=== PATIENT | male | born 1960 | race Two or more races ===

== ENCOUNTER 2017-08-12 08:30 | Day surgery (SDC) | payer OTHER ==
[~2017-08-12] VITALS: Ht 170.2 cm; Wt 63.5 kg
[2017-08-12 09:04] VITALS: Ht 170.2 cm; Wt 63.5 kg
[2017-08-12] MEDS ORDERED: FENTAnyl 50 MCG/ML VIAL ONE (09:48)
[2017-08-12] MEDS ORDERED: MIDAZOLAM 1 MG/ML 2 ML INJ ONE ×2 (09:49)
--- NOTE | 2017-08-12 10:01 | OPPN ---
Date/Time of Note Date/Time of Note DATE: 08/12/17 TIME: 10:00 Proc Note GI Procedure Date 08/12/17 Indication: screening/surveillance Pre-procedure Diagnosis Screening procedure Post-procedure Diagnosis Normal: Colonoscopy Procedure Performed: Colonoscopy Surgeon see signature line Briquetting Machine Operator none Anesthesia Type: moderate sedation Tourniquet Time none EBL none Transfusion required none Biopsy 1: None Grafts/Implants none Tubes/Drains none Complication(s) none Disposition: home Procedure Description See dictated report CAROL BEAL MD Aug 12, 2017 10:01
--- NOTE | 2017-08-12 10:01 | OPPN ---
Date/Time of Note Date/Time of Note DATE: 08/12/17 TIME: 10:00 Proc Note GI Procedure Date 08/12/17 Indication: screening/surveillance Pre-procedure Diagnosis Screening procedure Post-procedure Diagnosis Normal: Colonoscopy Procedure Performed: Colonoscopy Surgeon see signature line Environmental Associate none Anesthesia Type: moderate sedation Tourniquet Time none EBL none Transfusion required none Biopsy 1: None Grafts/Implants none Tubes/Drains none Complication(s) none Disposition: home Procedure Description See dictated report CAROL BEAL MD Aug 12, 2017 10:01
[2017-08-12 10:12] VITALS: BP 112/75; RESP 14
--- NOTE | 2017-08-12 10:21 | GILP ---
DATE OF PROCEDURE: PROCEDURE PERFORMED: Colonoscopy. INDICATION: A 57-year-old male undergoing this procedure for screening colonoscopy. The risks of t he procedure, related and unrelated complications, sedative risks, alternatives discussed and inform ed consent was obtained. DESCRIPTION OF PROCEDURE: Patient was brought to the GI lab, sedated with Versed and fentanyl as pe r our RN's note. After obtaining sedation, scope was passed with much ease into rectum, advanced th rough sigmoid, descending, transverse colon all the way into cecum. Appendiceal orifice and IC valv e identified. While coming out, mucosa thoroughly inspected. The rest of the colon was normal. Cl arity and cleanliness was good. Retroversion done, no growth was seen. Scope was straightened out and removed with good patient tolerance. Digital examination also was normal. IMPRESSION: 1. Normal finding all the way into cecum. 2. Clarity and cleanliness was good. PLAN: Patient should stay on a high fiber diet. Next colonoscopy after 10 years. Dictated By: CAROL GODINEZ/SYLVIA Conf#: [id number] DID#: [id number] CC: Primary Care Physician;*EndCC*
== END 2017-08-12 17:33 | disposition home or self-care (01) ==
LOC: GIL 08:30
PROVIDERS: ATTEND Internal Medicine Gastroenterology
DX: Z12.11 Encounter for screening for malignant neoplasm of colon (principal)
CPT/HCPCS: 45378; J2250; J3010